=== PATIENT | male | born 1965 | race Caucasian/White ===

== ENCOUNTER 2016-07-19 16:02 | Emergency (ER) | payer MEDICAID ==
[2016-07-19] MEDS ORDERED: IBUPROFEN 800 MG TABLET PO STA (16:17)
[2016-07-19] MEDS ORDERED: CEPHALEXIN 250 MG CAPSULE PO STA (16:17)
[2016-07-19] MEDS ORDERED: IBUPROFEN 800 MG TABLET PO ONE (16:19)
[2016-07-19] MEDS ORDERED: CEPHALEXIN 250 MG CAPSULE PO ONE (16:19)
== END 2016-07-19 16:39 | disposition home or self-care (01) ==
DX: K02.9 Dental caries, unspecified (principal); K04.7 Periapical abscess without sinus; F17.200 Nicotine dependence, unspecified, uncomplicated
CPT/HCPCS: 99282; 99283; A9270

== ENCOUNTER 2016-08-10 16:30 | Emergency (ER) | payer MEDICAID | END 2016-08-10 18:48 | disposition home or self-care (01) | DX: K04.7 Periapical abscess without sinus (principal); F17.200 Nicotine dependence, unspecified, uncomplicated ==

== ENCOUNTER 2016-09-05 19:01 | Emergency (ER) | payer MEDICAID ==
[2016-09-05] MEDS ORDERED: oxyCODONE/ACET 5/325 Prepack 4 PO STA (21:02)
[2016-09-05] MEDS ORDERED: PENICILLIN VK 250 MG TABLET PO STA (21:02)
[2016-09-05] MEDS ORDERED: oxyCODONE/ACET 5/325 Prepack 4 PO ONE (21:05)
[2016-09-05] MEDS ORDERED: PENICILLIN VK 250 MG TABLET PO ONE (21:05)
--- NOTE | 2016-09-05 21:05 | ED Physician Documentation ---
PD HPI HEENT - Stated complaint Stated Complaint: TOOTH PX - Chief complaint Chief Complaint: Heent - History obtained from History obtained from: Patient - History of Present Illness Timing - details: Other (Recurrent pain from a right maxillary molar. Hasn't been able to see the dentist. Improves in the past after antibiotics.) Review of Systems Constitutional: reports: Myalgias, Fatigue. denies: Fever, Chills Ears: denies: Loss of hearing, Ear pain Nose: denies: Rhinorrhea / runny nose, Congestion Throat: reports: Dental pain / toothache. denies: Sore throat Cardiac: denies: Chest pain / pressure PD PAST MEDICAL HISTORY - Past Medical History Past Medical History: Yes Cardiovascular: None Respiratory: None Neuro: None Endocrine/Autoimmune: Other GI: None : None HEENT: None Psych: Depression, Bipolar disorder Musculoskeletal: None Derm: None - Past Surgical History Past Surgical History: Yes Ortho: Other - Present Medications Home Medications: Ambulatory Orders Medication Instructions Recorded Confirmed Penicillin V Potassium 500 mg PO QID #40 tablet 09/05/16 - Allergies Allergies/Adverse Reactions: Allergies Allergy/AdvReac Type Severity Reaction Status Date / Time aspirin AdvReac Mild "made me Verified 09/05/16 19:21 not feel good" - Social History Does the pt smoke?: Yes Smoking Status: Current every day smoker Does the pt drink ETOH?: No Does the pt have substance abuse?: No - Immunizations Immunizations are current?: No - POLST Patient has POLST: No PD ED PE NORMAL - Vitals Vital signs reviewed: Yes - General General: Alert and oriented X 3, No acute distress - HEENT HEENT: Other (Lots of cavities, lots of fillings 2. No dental tenderness or trismus.) - Neck Neck: Supple, no meningeal sign, No bony TTP - Neuro Neuro: Alert and oriented X 3, Normal speech - Psych Psych: Normal mood, Normal affect Results - Vitals Vitals: Vital Signs - 24 hr 09/05/16 19:15 Temperature 36.8 C Heart Rate 93 Respiratory 17 Rate Blood Pressure 137/80 H O2 Saturation 99 Oxygen O2 Source Room air Departure - Departure Disposition: 01 Home, Self Care Clinical Impression: Infected dental caries Condition: Good Record reviewed to determine appropriate education?: Yes Instructions: ED Tooth Pain Prescriptions: Penicillin V Potassium 500 mg PO QID #40 tablet Comments: It is very important that you follow up with a dentist. When it comes to dental problems like yours the emergency department can only offer you a short-term solution to your long-term problem. A couple of options for low-cost dental care include: [facility] in [place] call [phone] for an appointment Or [facility] in [place], call [phone] for an appointment Your blood pressure was elevated today on check in to the emergency department. This does not mean that you have hypertension, it is a common phenomenon to check into the emergency department and have elevated blood pressure. I recommend that you see your primary care physician within the week to have it rechecked when you're feeling better.
[2016-09-05 21:11] VITALS: BP 139/84
== END 2016-09-05 21:21 | disposition home or self-care (01) ==
LOC: ED 19:01
DX: K04.7 Periapical abscess without sinus (principal); K02.9 Dental caries, unspecified; R03.0 Elevated blood-pressure reading, without diagnosis of hypertension; F17.200 Nicotine dependence, unspecified, uncomplicated
CPT/HCPCS: 99283; A9270